=== PATIENT | female | born 1965 | race Two or more races ===

== ENCOUNTER 2024-05-02 06:45 | Day surgery (SDC) | payer MEDICAID, SELFPAY ==
[2024-05-02] VITALS (8 sets, daily range): BP systolic 111–145; BP diastolic 74–93; PULSE 74–97; RESP 13–18; TEMP 36.6–37.2; O2SAT 97–100; BMI 26.5
[2024-05-02] MEDS: SODIUM CHLORIDE 0.9% 100 ML IV (07:50)
[2024-05-02] MEDS: DiphenhydrAMINE INJ 50 MG/ML VIAL 25 MG IV (07:54)
[2024-05-02] MEDS: MIDAZOLAM INJ 1 MG/ML VIAL 2 ML (ASD USE ONLY) 2 MG IV (07:56)
[2024-05-02] MEDS: fentaNYL CIT INJ 50 mCg/ML AMP 2ML (ASD USE ONLY) IV (07:59)
--- NOTE | 2024-05-02 09:40 | SUR.PHASEII ---
0813: Pt received for recovery. Report from Ekta BRISCOE. Pt sleepy. Easily aroused. Resp even, unlabored. VS stable. No c/o pain, discomfort. 0840: Pt more awake, alert. VS stable. Denies pain. Sitting up tolerating po fluids with no difficulty swallowing and no n/v. 0855: Pt fully awake, oriented. Pt assisted to restroom. Ambulation steady. 0932: Pt dressed and in transport chair. Pt and Setswana. Liquor Clerk Violette #[id number] assisted with discharge instructions. Both stated understanding of instructions. Pt discharged from [facility] in stable condition.
== END 2024-05-02 09:32 | disposition home or self-care (01) ==
PROVIDERS: PCP Family Medicine; Referring Provider Surgery; Visit Provider Surgery
PROC: 0DBE8ZX Excision of Large Intestine, Via Natural or Artificial Opening Endoscopic, Diagnostic (ICD-10-PCS; CPT 45380; principal; 2024-05-02 07:30)
DX: Z12.11 Encounter for screening for malignant neoplasm of colon (principal); K64.1 Second degree hemorrhoids; K57.30 Diverticulosis of large intestine without perforation or abscess without bleeding
CPT/HCPCS: 45380; J1200; J2250; J3010; J7050